=== PATIENT | female | born 1970 | race Caucasian/White ===

== ENCOUNTER 2018-01-24 06:20 | Day surgery (SDC) | payer OTHER ==
[~2018-01-24 06:20] MED LIST: GLUCOPHAGE XR750 MG PO; VICTOZA 2-0.6 MG/0.1 SQ
[2018-01-24] MEDS ORDERED: DOXYCYCLINE HY100 MG PO (09:03)
[2018-01-24] MEDS ORDERED: CODE1TAB37 PO (09:03)
== END 2018-01-24 15:35 | disposition home or self-care (01) ==
LOC: CIR.AMB 06:20
DX: N87.1 Moderate cervical dysplasia (principal)